=== PATIENT | female | born 1945 | race Caucasian/White ===

== ENCOUNTER 2021-07-14 13:02 | Outpatient (CLI) | payer MEDICARE ==
[2021-07-14 14:45] LABS: Hemoglobin 12.8 g/dL (12.0-15.5); Mean Corpuscular HGB CONC 31.5 g/dL (32.0-36.0); Mean Corpuscular Hemoglobin 28.2 pg (27.0-33.0); Mean Corpuscular Volume 89.4 fl (81.6-98.3); Mean Platelet Volume 11.9 fl (7.4-10.4); Platelet Count 191 10x3/uL (150-450); RBC Distribution Width 14.1 % (11.5-14.5); Red Blood Cell (RBC) Count 4.54 10x6/uL (3.90-5.03); White Blood Cell (WBC) Count 7.8 10x3/uL (3.5-10.5)
[2021-07-14 14:51] LABS: INR-International Normal Ratio 0.9; PTT 26.8 sec (22.0-33.0); Prothrombin Time 10.2 sec (9.5-12.1)
[2021-07-14 14:53] LABS: Anion Gap 14 mmol/L (10-20); BUN (Urea Nitrogen) 15 mg/dL (9.8-20.1); Calc. Creatinine Clearance 0 mL/min (70-130); Carbon Dioxide 31 mmol/L (23-31); Chloride 103 mmol/L (98-107); Potassium 3.6 mmol/L (3.5-5.1); Sodium 144 mmol/L (136-145)
[2021-07-14 15:51] LABS: Glucose 54 mg/dL (83-110)
[2021-07-15 11:19] LABS: SARS-CoV-2 PCR by NAA Not Detected (NotDetected)
== END 2021-07-14 13:03 | disposition home or self-care (01) ==
LOC: LABBT 13:02
PROVIDERS: ATTEND Neurological Surgery
DX: Z01.818 Encounter for other preprocedural examination (principal); Z20.822 Contact with and (suspected) exposure to COVID-19
CPT/HCPCS: 80048; 85027; 85610; 85730; 93005; U0003; U0005; 93010

== ENCOUNTER 2021-07-19 05:16 | Inpatient (IN) | payer MEDICARE ==
[2021-07-19] MEDS ORDERED: Bupivacaine PF 0.5% 30 ML VIAL ONE (06:11)
[2021-07-19] MEDS ORDERED: EPINEPHrine 1 MG/ML AMP ONE (06:11)
[2021-07-19] MEDS ORDERED: Neomycin-Polymyxin 1 ML AMP ONE (06:11)
[2021-07-19] MEDS ORDERED: Thrombin 5000 UNITS/5 ML VIAL ONE (06:11)
[2021-07-19] MEDS ORDERED: Fentanyl 250 MCG/5 ML VIAL ONE (06:26)
[2021-07-19] MEDS ORDERED: Dexmedetomidine 200 MCG/2 ML VIAL ONE (06:26)
[2021-07-19] MEDS ORDERED: Albumin 5% 0 ML ONE (06:27)
[2021-07-19] MEDS ORDERED: ceFAZolin 2 GM/DEX 5% 100 ML BAG ONE (06:27)
[2021-07-19] MEDS ORDERED: Famotidine/PF 20 mg/2ml Vial ONE (06:54)
[2021-07-19] MEDS ORDERED: Scopolamine 1.5 mg/72 hour Patch ONE (06:54)
[2021-07-19] MEDS ORDERED: Lidocaine 1% PF 5 ML VIAL ONE (06:55)
[2021-07-19] MEDS ORDERED: Vecuronium 10 MG VIAL ONE (06:55)
[2021-07-19] MEDS ORDERED: PROPOFOL 200 MG/20 ML VIAL ONE (06:55)
[2021-07-19] MEDS ORDERED: Phenylephrine 10 MG/ML VIAL ONE (06:55)
[2021-07-19] MEDS ORDERED: Rocuronium Bromide 10 MG/ML (10ML VIAL) ONE (06:55)
[2021-07-19] MEDS ORDERED: Dexamethasone 20 MG/5 ML VIAL ONE (06:55)
[2021-07-19] MEDS ORDERED: ePHEDrine 50 MG/ML VIAL ONE (06:55)
[2021-07-19] MEDS ORDERED: Promethazine HCl 25 MG/ML VIAL ONE (07:09)
[2021-07-19] MEDS ORDERED: SUGAMMADEX SODIUM 200 MG/2 ML VIAL ONE (11:20)
[2021-07-19] MEDS ORDERED: Promethazine HCl 25 MG/ML VIAL IM PRN (11:21)
[2021-07-19] MEDS ORDERED: Promethazine HCl 25 MG/ML VIAL IVPB PRN (11:21)
[2021-07-19] MEDS ORDERED: Acetaminophen 650 MG Suppository PR PRN (11:36)
[2021-07-19] MEDS ORDERED: diphenhydrAMINE 50 MG/ML VIAL IVP PRN (11:36)
[2021-07-19] MEDS ORDERED: Cyclobenzaprine 10 MG TAB PO PRN (11:36)
[2021-07-19] MEDS ORDERED: HYDROcodone/Acetaminophen 10/325 mg Tablet PO PRN ×2 (11:36)
[2021-07-19] MEDS ORDERED: diphenhydrAMINE 25 MG CAP PO PRN (11:36)
[2021-07-19] MEDS ORDERED: Bisacodyl 10 MG SUPP PR PRN (11:36)
[2021-07-19] MEDS ORDERED: Promethazine HCl 12.5 MG SUPP PR PRN (11:36)
[2021-07-19] MEDS ORDERED: Morphine 4 MG/ML VIAL SLOW IVP PRN ×2 (11:36→13:10)
[2021-07-19] MEDS ORDERED: Fleet Enema 133 ML BOT PR PRN (11:36)
[2021-07-19] MEDS ORDERED: Promethazine 25 MG TAB PO PRN (11:36)
[2021-07-19] MEDS ORDERED: Fentanyl 100 MCG/2 ML VIAL ONE (12:38)
[2021-07-19] MEDS: ceFAZolin Sodium/D5W 2 GM in Premix Bag 1 BAG IVPB SCH ×2 (16:16→22:54)
[2021-07-19] MEDS ORDERED: Dextrose 5% in Water 1,000 ML IV PRN (16:59)
[2021-07-19] MEDS ORDERED: Dextrose 50% Abboject 50 ML SYRINGE SLOW IVP PRN (16:59)
[2021-07-19] MEDS ORDERED: HumaLOG 300 UNITS/3 ML VIAL SC PRN (16:59)
[2021-07-19] MEDS: Promethazine HCl 25 MG/ML VIAL IM PRN ×2 (17:33→20:46)
[2021-07-19 18:34] VITALS: BMI 25.0
[2021-07-19] MEDS: Sodium Chloride 0.9% 1,000 ML IV SCH (18:42)
[2021-07-19] MEDS ORDERED: Nitroglycerin 0.4 MG TAB (25 Tab Bottle) SL PRN (18:51)
[2021-07-19] MEDS ORDERED: Gabapentin 300 MG CAP PO PRN (18:55)
[2021-07-19] MEDS: Lantus 1000 UNITS/10 ML VIAL SC SCH (21:15)
[2021-07-19] MEDS: Atorvastatin Calcium 40 MG TAB PO SCH (22:46)
[2021-07-19] MEDS ORDERED: Lorazepam 2 MG/ML VIAL ONE (23:15)
[2021-07-19] MEDS ORDERED: Lorazepam 2 MG/ML VIAL SLOW IVP SCH (23:30)
[2021-07-20] MEDS ORDERED: Dexamethasone 4 mg/ml Vial SLOW IVP SCH (02:45)
[2021-07-20] MEDS: Sodium Chloride 0.9% 1,000 ML IV SCH ×2 (03:36→16:20)
[2021-07-20] MEDS: Levothyroxine Sodium 125 MCG TAB PO SCH (06:24)
[2021-07-20 06:44] LABS: #Lymphocytes 0.9 thou/uL (1.20-3.40); #Monocytes 1.1 thou/uL (0.11-0.59); #Neutrophils 15.2 thou/uL (1.40-6.50); %Basophils 0.1 % (0.0-1.0); %Eosinophils 0.1 % (0.0-10.0); %Monocytes 6.5 % (0.0-10.0); %Neutrophils 88.4 % (42.0-75.0); Hemoglobin 12.5 g/dL (12.0-16.0); Mean Corpuscular HGB CONC 32.8 g/dL (32.0-36.0); Mean Corpuscular Hemoglobin 29.6 pg (27.0-31.0); Mean Corpuscular Volume 90.3 fL (78.0-98.0); Mean Platelet Volume 9.5 fL (7.4-10.4); Platelet Count 167 thou/uL (130-400); RBC Distribution Width 13.3 % (11.5-14.5); Red Blood Cell (RBC) Count 4.22 mill/uL (4.20-5.40); White Blood Cell (WBC) Count 17.2 thou/uL (4.8-10.8)
[2021-07-20 07:09] LABS: Anion Gap 18 mmol/L (10-20); BUN (Urea Nitrogen) 18 mg/dL (9.8-20.1); Calc. Creatinine Clearance 71 mL/min (70-130); Calcium 9.2 mg/dL (7.8-10.44); Carbon Dioxide 22 mmol/L (23-31); Chloride 105 mmol/L (98-107); Glucose 144 mg/dL (83-110); Potassium 3.6 mmol/L (3.5-5.1); Sodium 141 mmol/L (136-145)
[2021-07-20] MEDS ORDERED: Carvedilol 3.125 MG TAB PO SCH (09:00)
[2021-07-20] MEDS: Empagliflozin 25 MG TAB PO SCH (09:04)
[2021-07-20] MEDS: Carvedilol 3.125 MG TAB PO SCH ×2 (09:04→20:28)
[2021-07-20] MEDS: Glimepiride 4 MG TAB PO SCH ×3 (09:04→19:37)
[2021-07-20] MEDS: Pantoprazole 40 MG VIAL IVP SCH (09:04)
[2021-07-20] MEDS: Lantus 1000 UNITS/10 ML VIAL SC SCH ×2 (09:14→20:29)
[2021-07-20] MEDS ORDERED: Gabapentin 300 MG CAP PO PRN (10:02)
[2021-07-20] MEDS ORDERED: OLANZapine ODT 5 MG TAB PO SCH (10:15)
[2021-07-20] MEDS: Promethazine HCl 25 MG/ML VIAL IM PRN (11:00)
[2021-07-20] MEDS: Atorvastatin Calcium 40 MG TAB PO SCH (20:28)
[2021-07-20] MEDS: Acetaminophen 325 MG TAB PO PRN (20:29)
[2021-07-20] MEDS ORDERED: traMADol HCl 50 MG TAB PO PRN ×2 (20:52→20:53)
[2021-07-21] MEDS: Lantus 1000 UNITS/10 ML VIAL SC SCH ×2 (05:22→10:35)
[2021-07-21] MEDS: Levothyroxine Sodium 125 MCG TAB PO SCH (05:24)
[2021-07-21] MEDS: Acetaminophen 325 MG TAB PO PRN ×2 (05:26→16:59)
[2021-07-21] MEDS: Sodium Chloride 0.9% 1,000 ML IV SCH (08:13)
[2021-07-21] MEDS: Glimepiride 4 MG TAB PO SCH (10:34)
[2021-07-21] MEDS: Carvedilol 3.125 MG TAB PO SCH (10:35)
[2021-07-21] MEDS: Empagliflozin 25 MG TAB PO SCH (10:35)
[2021-07-21] MEDS: Pantoprazole 40 MG VIAL IVP SCH (10:36)
[2021-07-21 16:10] VITALS: BP 154/73; TEMP 99.1
[2021-07-22] MEDS ORDERED: Scopolamine 1.5 mg/72 hour Patch TD SCH (07:00)
== END 2021-07-21 17:30 | disposition home or self-care (01) | DRG 455 ==
LOC: SDC 05:16 → SURG A 11:40
PROVIDERS: ADMIT Neurological Surgery; ATTEND Neurological Surgery
PROC: 0SG30AJ Fusion of Lumbosacral Joint with Interbody Fusion Device, Posterior Approach, Anterior Column, Open Approach (ICD-10-PCS; principal; 2021-07-19)
PROC: 0SG3071 Fusion of Lumbosacral Joint with Autologous Tissue Substitute, Posterior Approach, Posterior Column, Open Approach (ICD-10-PCS; 2021-07-19)
PROC: 01NB0ZZ Release Lumbar Nerve, Open Approach (ICD-10-PCS; 2021-07-19)
PROC: 01NR0ZZ Release Sacral Nerve, Open Approach (ICD-10-PCS; 2021-07-19)
DX: M48.07 Spinal stenosis, lumbosacral region (principal); M48.062 Spinal stenosis, lumbar region with neurogenic claudication; M51.16 Intervertebral disc disorders with radiculopathy, lumbar region; M51.17 Intervertebral disc disorders with radiculopathy, lumbosacral region; I10 Essential (primary) hypertension; E78.5 Hyperlipidemia, unspecified; I25.10 Atherosclerotic heart disease of native coronary artery without angina pectoris; E11.9 Type 2 diabetes mellitus without complications; E03.9 Hypothyroidism, unspecified; Z90.49 Acquired absence of other specified parts of digestive tract; Z95.5 Presence of coronary angioplasty implant and graft; Z90.710 Acquired absence of both cervix and uterus; Z90.11 Acquired absence of right breast and nipple; Z85.3 Personal history of malignant neoplasm of breast; Z79.4 Long term (current) use of insulin; Z79.02 Long term (current) use of antithrombotics/antiplatelets; Z86.73 Personal history of transient ischemic attack (TIA), and cerebral infarction without residual deficits; Z79.01 Long term (current) use of anticoagulants; Z79.890 Hormone replacement therapy; Z79.899 Other long term (current) drug therapy
CPT/HCPCS: 36416; 76000; 80048; 85025; 86850; 86900; 86901; C1713; C1768; C1776; C9113; J0171; J1100; J1815; J2060; J2270; J2370; J2550; J2704; J3010; J3370; J3490; J7050; P9045; Q0169; S0020; S0028

== ENCOUNTER 2023-05-10 19:22 | Inpatient (IN) | payer MEDICARE, OTHER ==
[2023-05-10] MEDS ORDERED: fentaNYL 50 mcg/mL 1 mL Vial ONE (20:48)
[2023-05-10 21:09] LABS: #Basophils 0.1 thou/uL (0.0-0.2); #Monocytes 0.5 thou/uL (0.11-0.59); #Neutrophils 11.2 thou/uL (1.40-6.50); %Basophils 0.4 % (0.0-1.0); %Eosinophils 0.2 % (0.0-10.0); %Lymphocytes 8.6 % (21.0-51.0); %Neutrophils 86.5 % (42.0-75.0); Hematocrit 36.2 % (36.0-47.0); Hemoglobin 12.2 g/dL (12.0-16.0); Mean Corpuscular HGB CONC 33.7 g/dL (32.0-36.0); Mean Corpuscular Hemoglobin 31.3 pg (27.0-31.0); Mean Corpuscular Volume 92.8 fl (78.0-98.0); Mean Platelet Volume 11.7 fL (7.4-10.4); Platelet Count 166 10x3/uL (130-400); RBC Distribution Width 12.9 % (11.5-14.5)
[2023-05-10 21:22] LABS: INR-International Normal Ratio 1.1; PTT 30.4 sec (22.9-36.1); Prothrombin Time 14.6 sec (12.0-14.7)
[2023-05-10] MEDS ORDERED: Ipratropium/Albuterol 3 ML NEB NEB PRN (21:25)
[2023-05-10] MEDS ORDERED: Ondansetron PF 4 MG/2 ML Vial IVP PRN ×2 (21:25→22:21)
[2023-05-10] MEDS ORDERED: Sodium Chloride 0.9% 1,000 ML IV SCH (21:30)
[2023-05-10 21:33] LABS: ALT (SGPT) 27 U/L (8-55); AST (SGOT) 27 U/L (5-34); Albumin 4.8 g/dL (3.4-4.8); Alkaline Phosphatase 72 U/L (40-110); Anion Gap 19 mmol/L (10-20); BUN (Urea Nitrogen) 14 mg/dL (9.8-20.1); Bilirubin, Total 1.5 mg/dL (0.2-1.2); Calc. Creatinine Clearance 0 mL/min (70-130); Calcium 9.9 mg/dL (7.8-10.44); Carbon Dioxide 22 mmol/L (23-31); Chloride 101 mmol/L (98-107); Estimated GFR 73; Globulin 2.7 g/dL (2.4-3.5); Glucose 229 mg/dL (83-110); Lipase 28 U/L (8-78); Magnesium 1.8 mg/dL (1.6-2.6); Potassium 3.9 mmol/L (3.5-5.1); Protein, Total 7.5 g/dL (5.8-8.1); Sodium 138 mmol/L (136-145)
[2023-05-10 21:37] LABS: Troponin I Less than 0.010 ng/mL (< 0.028)
[2023-05-10] MEDS ORDERED: Metoprolol Tartrate 5 MG/5 ML VIAL ONE (21:53)
[2023-05-10 22:02] LABS: Bilirubin Negative (Negative); Blood, Urine Negative (Negative); CAUTI Indications for Culture Pelvic or flank pain; Clarity Clear (Clear); Glucose, Urine (Dipstick) 200 mg/dL (Negative); Ketone, Urine Trace mg/dL (Negative); Leukocyte 75 Leu/uL (Negative); Nitrite Negative (Negative); Protein, Urine (Dipstick) 20 mg/dL (Neg-Trace); RBC/HPF 0-3 HPF (0-3); Specific Gravity, Urine 1.012 (1.002-1.036); Squamous Epithelial 0-3 HPF (0-3); Urobilinogen Normal mg/dL (Less than 2); Yeast-Budding Rare HPF (None Seen)
[2023-05-10 22:11] LABS: Bacteria/HPF 1+ HPF (None Seen)
[2023-05-10 22:12] LABS: Urine Culture Reflex Yes Yes
[2023-05-10] MEDS ORDERED: Acetaminophen 325 MG TAB ONE (22:22)
[2023-05-10] MEDS: Acetaminophen 325 MG TAB PO PRN (22:24)
[2023-05-11] MEDS ORDERED: fentaNYL 50 mcg/mL 1 mL Vial ONE (02:05)
[2023-05-11 04:35] LABS: #Basophils 0.1 thou/uL (0.0-0.2); #Monocytes 0.5 thou/uL (0.11-0.59); #Neutrophils 6.2 thou/uL (1.40-6.50); %Basophils 0.6 % (0.0-1.0); %Eosinophils 0.5 % (0.0-10.0); %Monocytes 5.8 % (0.0-10.0); %Neutrophils 70.6 % (42.0-75.0); Hemoglobin 11.6 g/dL (12.0-16.0); Mean Corpuscular HGB CONC 33.1 g/dL (32.0-36.0); Mean Corpuscular Hemoglobin 30.3 pg (27.0-31.0); Mean Corpuscular Volume 91.4 fl (78.0-98.0); Mean Platelet Volume 11.5 fL (7.4-10.4); Platelet Count 177 10x3/uL (130-400); RBC Distribution Width 12.7 % (11.5-14.5); Red Blood Cell (RBC) Count 3.83 mill/uL (4.20-5.40); White Blood Cell (WBC) Count 8.8 10x3/uL (4.8-10.8)
[2023-05-11 05:07] LABS: Anion Gap 14 mmol/L (10-20); BUN (Urea Nitrogen) 13 mg/dL (9.8-20.1); Calc. Creatinine Clearance 62 mL/min (70-130); Calcium 9.2 mg/dL (7.8-10.44); Carbon Dioxide 25 mmol/L (23-31); Chloride 103 mmol/L (98-107); Estimated GFR 87; Glucose 161 mg/dL (83-110); Potassium 3.9 mmol/L (3.5-5.1); Sodium 138 mmol/L (136-145)
[2023-05-11] MEDS ORDERED: Labetalol HCl 100 MG/20 ML VIAL ONE (05:30)
[2023-05-11] MEDS ORDERED: HumaLOG 300 UNITS/3 ML VIAL SC PRN (07:00)
[2023-05-11] MEDS ORDERED: Dextrose 50% Abboject 50 ML SYRINGE SLOW IVP PRN (07:00)
[2023-05-11] MEDS ORDERED: Dextrose 5% in Water 1,000 ML IV PRN (07:00)
[2023-05-11] MEDS ORDERED: Glucagon 1 MG/ML KIT IM PRN (07:00)
[2023-05-11] MEDS ORDERED: Scopolamine 1.5 mg/72 hour Patch TD SCH (08:00)
[2023-05-11] MEDS: Acetaminophen 325 MG TAB PO PRN (08:40)
[2023-05-11] MEDS ORDERED: Lisinopril 10 MG TAB PO SCH (09:00)
[2023-05-11] MEDS ORDERED: FLU VACC QS2023(65UP)/MF59C/PF 60 MCG/0.5 ML SYRINGE IM ONE (09:00)
[2023-05-11] MEDS ORDERED: Labetalol HCl 100 MG/20 ML VIAL SLOW IVP PRN (09:02)
[2023-05-11] MEDS: Acetaminophen/Codeine 30-300mg Tablet PO PRN ×2 (09:14→15:25)
[2023-05-11] MEDS: Amlodipine 10 MG TAB PO SCH (09:14)
[2023-05-11] MEDS: Acetaminophen 325 MG TAB PO SCH ×3 (09:17→20:56)
[2023-05-11] MEDS: cefTRIAXone\\ROCEPHIN 2 GM in Sodium Chloride 0.9% 100 ML IVPB SCH (11:02)
[2023-05-11] MEDS ORDERED: Polyethylene Glycol 3350 17 GM Packet PO SCH (11:15)
[2023-05-11] MEDS: Polyethylene Glycol 3350 17 GM Packet PO SCH (11:32)
[2023-05-11] MEDS ORDERED: Sodium Chloride 0.9% 100 ML ONE (11:42)
[2023-05-11] MEDS ORDERED: Meclizine HCl 12.5 MG TAB PO SCH (15:48)
[2023-05-11] MEDS ORDERED: Meclizine HCl 12.5 MG TAB PO PRN (16:15)
[2023-05-11] MEDS: Insulin Regular 300 UNITS/3 ML VIAL SC PRN (16:29)
[2023-05-11] MEDS: Atorvastatin Calcium 40 MG TAB PO SCH (20:56)
[2023-05-11] MEDS: Gabapentin 300 MG CAP PO SCH (20:56)
[2023-05-11] MEDS: Senokot S 8.6-50 MG TAB PO SCH (20:57)
[2023-05-12] MEDS: Acetaminophen 325 MG TAB PO SCH ×4 (04:41→21:15)
[2023-05-12] MEDS ORDERED: Lisinopril 5 MG TAB PO SCH (09:00)
[2023-05-12] MEDS: Amlodipine 10 MG TAB PO SCH (09:21)
[2023-05-12] MEDS: Senokot S 8.6-50 MG TAB PO SCH ×2 (09:22→21:14)
[2023-05-12] MEDS: cefTRIAXone\\ROCEPHIN 2 GM in Sodium Chloride 0.9% 100 ML IVPB SCH (11:41)
[2023-05-12] MEDS ORDERED: Magnevist 469MG/ML 20 ML VIAL ONE (14:28)
[2023-05-12] MEDS: Insulin Regular 300 UNITS/3 ML VIAL SC PRN (16:33)
[2023-05-12] MEDS: Atorvastatin Calcium 40 MG TAB PO SCH (21:15)
[2023-05-12] MEDS: Gabapentin 300 MG CAP PO SCH (21:15)
[2023-05-13] MEDS: Acetaminophen 325 MG TAB PO SCH ×2 (03:50→09:01)
[2023-05-13] MEDS ORDERED: Lisinopril 10 MG TAB PO SCH (09:00)
[2023-05-13] MEDS: Amlodipine 10 MG TAB PO SCH (09:01)
[2023-05-13] MEDS: Polyethylene Glycol 3350 17 GM Packet PO SCH (09:54)
[2023-05-13] MEDS: Senokot S 8.6-50 MG TAB PO SCH (09:55)
[2023-05-13 13:21] VITALS: TEMP 98.5
[2023-05-13 15:58] VITALS: BP 106/62
== END 2023-05-13 14:15 | disposition home or self-care (01) | DRG 84 ==
LOC: ERS 19:22 → ERHOLD 21:29 → OBSVTOIN 05-11 06:49 → IMCU/EMU 05-11 08:00 → SJJU 05-12 18:24
PROVIDERS: ADMIT Surgery; ATTEND Surgery
DX: S06.6X9A Traumatic subarachnoid hemorrhage with loss of consciousness of unspecified duration, initial encounter (principal); E11.9 Type 2 diabetes mellitus without complications; I25.10 Atherosclerotic heart disease of native coronary artery without angina pectoris; W19.XXXA Unspecified fall, initial encounter; I10 Essential (primary) hypertension; I16.0 Hypertensive urgency; R42 Dizziness and giddiness; Z79.01 Long term (current) use of anticoagulants; Z86.73 Personal history of transient ischemic attack (TIA), and cerebral infarction without residual deficits; Z90.49 Acquired absence of other specified parts of digestive tract; Z90.710 Acquired absence of both cervix and uterus; Z98.890 Other specified postprocedural states; Z88.5 Allergy status to narcotic agent; Z88.8 Allergy status to other drugs, medicaments and biological substances
CPT/HCPCS: 36415; 36416; 70450; 70553; 71045; 72125; 80048; 80053; 81001; 83690; 83735; 83880; 84484; 85025; 85610; 85730; 87086; 93005; 93306; 96374; 96375; 96376; A9579; G0378; G0390; J0696; J1815; J3010; J3490; J7050

== ENCOUNTER 2023-05-18 12:29 | Outpatient (CLI) | payer OTHER | END 2023-05-18 12:30 | disposition home or self-care (01) | LOC: SCSCT 12:29 | PROVIDERS: ATTEND Neurological Surgery | DX: S06.6X0A Traumatic subarachnoid hemorrhage without loss of consciousness, initial encounter (principal) | CPT/HCPCS: 70450 ==

== ENCOUNTER 2023-06-14 09:08 | Outpatient (CLI) | payer OTHER | END 2023-06-14 09:09 | disposition home or self-care (01) | LOC: SCSCT 09:08 | PROVIDERS: ATTEND Neurological Surgery | DX: S06.6X0A Traumatic subarachnoid hemorrhage without loss of consciousness, initial encounter (principal); M54.2 Cervicalgia | CPT/HCPCS: 70450; 72141 ==

== ENCOUNTER 2024-01-08 13:28 | Outpatient (CLI) | payer OTHER | END 2024-01-08 13:29 | disposition home or self-care (01) | LOC: SCSMRI 13:28 | PROVIDERS: ATTEND Psychiatry & Neurology Neurology | DX: I60.9 Nontraumatic subarachnoid hemorrhage, unspecified (principal); M48.02 Spinal stenosis, cervical region; G31.9 Degenerative disease of nervous system, unspecified; R90.82 White matter disease, unspecified; I66.9 Occlusion and stenosis of unspecified cerebral artery; R60.0 Localized edema; Z95.5 Presence of coronary angioplasty implant and graft | CPT/HCPCS: 70544; 70553 ==

== ENCOUNTER 2024-04-26 13:00 | Inpatient (IN) | payer OTHER ==
[2024-04-26 12:31] VITALS: BMI 19.6
[2024-04-26 13:30] LABS: Bilirubin Negative (Negative); Blood, Urine Negative (Negative); Clarity Clear (Clear); Glucose, Urine (Dipstick) Normal (Negative); Ketone, Urine Negative (Negative); Leukocyte 75 Leu/uL (Negative); Nitrite Negative (Negative); Protein, Urine (Dipstick) Negative (Neg-Trace); Specific Gravity, Urine 1.007 (1.002-1.036); Urobilinogen Normal mg/dL (Less than 2)
[2024-04-26 13:32] LABS: #Basophils 0.04 10x3/uL (0.0-0.2); %Basophils 0.6 % (0.0-1.0); %Eosinophils 1.5 % (0.0-10.0); %Lymphocytes 34.8 % (21.0-51.0); %Monocytes 6.9 % (0.0-10.0); Hematocrit 38.2 % (36.0-47.0); Hemoglobin 12.3 g/dL (12.0-16.0); Mean Corpuscular HGB CONC 32.2 g/dL (32.0-36.0); Mean Corpuscular Hemoglobin 30.1 pg (27.0-31.0); Mean Corpuscular Volume 93.6 fL (78.0-98.0); Mean Platelet Volume 12.3 fL (7.4-10.4); Platelet Count 176 10x3/uL (130-400); RBC Distribution Width 12.4 % (11.5-14.5); Red Blood Cell (RBC) Count 4.08 mill/uL (4.20-5.40)
[2024-04-26 13:43] LABS: INR-International Normal Ratio 1.2; PTT 34.9 sec (22.9-36.1); Prothrombin Time 15.3 sec (12.0-14.7)
[2024-04-26 13:50] LABS: ALT (SGPT) 18 U/L (8-55); AST (SGOT) 19 U/L (5-34); Albumin 4.1 g/dL (3.4-4.8); Alkaline Phosphatase 57 U/L (40-110); Anion Gap 11 mmol/L (10-20); BUN (Urea Nitrogen) 24 mg/dL (9.8-20.1); Calc. Creatinine Clearance 45 mL/min (70-130); Calcium 9.1 mg/dL (7.8-10.44); Carbon Dioxide 26 mmol/L (23-31); Chloride 107 mmol/L (98-107); Estimated GFR 66; Globulin 2.9 g/dL (2.4-3.5); Glucose 125 mg/dL (83-110); Sodium 140 mmol/L (136-145)
[2024-04-29] MEDS ORDERED: Iopamidol 370 76% 100 ML VIAL ONE (10:10)
[2024-04-29] MEDS ORDERED: Sodium Chloride 0.9% 100 ML ONE (10:39)
[2024-04-29] MEDS ORDERED: CEFAZOLIN 1 GM VIAL ONE (10:39)
[2024-04-29] MEDS ORDERED: Protamine Sulfate 50 MG/5 ML VIAL ONE (10:57)
[2024-04-29] MEDS ORDERED: Heparin 10,000 UNITS/ 10 ML VIAL ONE (10:57)
[2024-04-29] MEDS ORDERED: SUGAMMADEX SODIUM 200 MG/2 ML VIAL ONE (11:19)
[2024-04-29] MEDS ORDERED: fentaNYL 50 mcg/mL 1 mL Vial ONE (11:19)
[2024-04-29] MEDS ORDERED: PHENYLEPHRINE-NS 100 MCG/ML 10 ML SYRINGE ONE (11:29)
[2024-04-29] MEDS ORDERED: PROPOFOL 200 MG/20 ML VIAL ONE (11:29)
[2024-04-29] MEDS ORDERED: Lidocaine 1% PF 5 ML VIAL ONE (11:29)
[2024-04-29] MEDS ORDERED: Dexamethasone 20 MG/5 ML VIAL ONE (11:29)
[2024-04-29] MEDS ORDERED: Rocuronium Bromide 10 MG/ML (10ML VIAL) ONE (11:29)
[2024-04-29] MEDS ORDERED: Sevoflurane 250 ML INH ANEST BOTTLE ONE (12:20)
== END 2024-04-29 16:25 | disposition home or self-care (01) | DRG 274 ==
LOC: SURG A 04-29 09:02
PROVIDERS: ADMIT Internal Medicine Cardiovascular Disease; ATTEND Internal Medicine Cardiovascular Disease
PROC: 02L73DK Occlusion of Left Atrial Appendage with Intraluminal Device, Percutaneous Approach (ICD-10-PCS; principal; 2024-04-29)
PROC: B24BZZ4 Ultrasonography of Heart with Aorta, Transesophageal (ICD-10-PCS; 2024-04-29)
DX: I48.0 Paroxysmal atrial fibrillation (principal); Z00.6 Encounter for examination for normal comparison and control in clinical research program; Z79.01 Long term (current) use of anticoagulants; Z88.8 Allergy status to other drugs, medicaments and biological substances; Z79.899 Other long term (current) drug therapy; I10 Essential (primary) hypertension; I25.10 Atherosclerotic heart disease of native coronary artery without angina pectoris; Z86.73 Personal history of transient ischemic attack (TIA), and cerebral infarction without residual deficits; Z85.3 Personal history of malignant neoplasm of breast
CPT/HCPCS: 33340; 80053; 81003; 85025; 85347; 85610; 85730; 86850; 86900; 86901; 93306; 93312; C1759; C1760; C1889; C1894; J0690; J1100; J1644; J2704; J2720; J3010; Q9967

== ENCOUNTER 2024-07-02 05:44 | Day surgery (SDC) | payer OTHER ==
[2024-07-02] MEDS ORDERED: Lidocaine 1% (PF) 30 ML VIAL ONE (07:20)
[2024-07-02] MEDS ORDERED: PROPOFOL 20 ML ONE (07:20)
[2024-07-02] MEDS ORDERED: PHENYLEPHRINE-NS 100 MCG/ML 10 ML SYRINGE ONE (07:21)
== END 2024-07-02 09:18 | disposition home or self-care (01) ==
LOC: SDC 05:44
PROVIDERS: ATTEND Internal Medicine Cardiovascular Disease
PROC: B24BZZ4 Ultrasonography of Heart with Aorta, Transesophageal (ICD-10-PCS; principal; 2024-07-02)
DX: I48.0 Paroxysmal atrial fibrillation (principal); Z95.818 Presence of other cardiac implants and grafts; Z88.5 Allergy status to narcotic agent; Z88.8 Allergy status to other drugs, medicaments and biological substances; Z79.01 Long term (current) use of anticoagulants
CPT/HCPCS: 93312; J2704